=== PATIENT | male | born 1970 | race Two or more races ===

== ENCOUNTER 2025-01-14 08:46 | Inpatient (IN) | payer OTHER ==
[~2025-01-14] VITALS: Ht 167.6 cm; Wt 86.2 kg
[2025-01-14] MEDS ORDERED: NORVASC (09:03)
[2025-01-14] MEDS ORDERED: DIOVAN320 MG (09:03)
[2025-01-14] MEDS ORDERED: NEURONTIN800 MG (09:04)
[2025-01-14] MEDS ORDERED: PANTOPRAZOLE SODIUM 40 MG/VIAL VIAL IV STA (09:37)
[2025-01-14] MEDS ORDERED: 0.9 % SODIUM CHLORIDE 1,000 ML IV STA (09:38)
[2025-01-14] MEDS ORDERED: THIAMINE HCL 100 MG/ML 2 ML VIAL IV STA (09:43)
[2025-01-14] MEDS ORDERED: ONDANSETRON HCL 2 MG/ML VIAL IV STA (09:45)
[2025-01-14 09:58] LABS: BASO % 0.9 % (0.1-1.2); EOS # 0.01 (0.04-0.54); EOS % 0.1 % (0.7-7.0); LYMPH # 1.24 (1.18-3.74); LYMPH % 14.3 % (19.3-53.1); MEAN PLATELET VOLUME 11.00 fl (9.4-12.4); MONO # 0.71 (0.24-0.82); MONO % 8.2 % (4.7-12.5); NEUT # 6.58 (1.56-6.13); NEUT % 76.2 % (34.0-71.1); RED CELL DISTRIBUTION WIDTH 12.9 % (11.6-14.4)
[2025-01-14 10:26] LABS: URINE APPEARANCE Clear; URINE BILIRRUBIN Moderate (NEGATIVE); URINE BLOOD Small; URINE COLOR Orange; URINE GLUCOSE Negative (NEGATIVE); URINE KETONE Negative (NEGATIVE); URINE LEUKOCYTE Small; URINE NITRATE Positive; URINE PROTEIN 30 (NEGATIVE)
[2025-01-14 10:28] LABS: URINE EPITHELIAL CELLS 4.1 uL (0.0-38.8); URINE RBC 92.8 uL (0.0-20.8); URINE WBC 1.9 uL (0.0-23.2)
[2025-01-14 10:37] LABS: ALT/SGPT 43.0 U/L (12-78); AST/SGOT 162.0 U/L (15-37); BILIRUBIN TOTAL 7.48 mg/dL (0.3-1.2); BUN CREA RATIO 20.0 (7.0-25.0); CREATININE SERUM 0.59 mg/dL (0.70-1.30); GFR 142.62; GLOBULINA 5.6 G/DL (2.4-3.5); GLUCOSE FASTING 106.0 mg/dL (65-100); OSMOLALITY SERUM 280.0 MOSM/KG (275-295)
[2025-01-14 10:39] LABS: URINE BACTERIA 3.5 uL (0.0-1933); URINE CAST 0.14 uL (0.0-1.40); URINE UROBILINOGEN 4.0 E.U./dl
[2025-01-14] MEDS ORDERED: DIATRIZOATE MEGLUMINE, SODIUM 30 ML BOTTLE ONE (11:57)
[2025-01-14] MEDS ORDERED: POTASSIUM CHLORIDE/NACL 0.9% 20 MEQ/1,000 ML PIGGYBAG IV STA (12:31)
[2025-01-14] MEDS ORDERED: GABAPENTIN 300 MG CAPSULE PO SCH (14:43)
[2025-01-14] MEDS ORDERED: CEFTRIAXONE SODIUM 1,000 MG VIAL IV SCH (20:09)
[2025-01-14] MEDS ORDERED: OCTREOTIDE ACETATE 0.05MG/ML (50MCG/ML) AMPUL IV ONE (20:15)
[2025-01-14] MEDS ORDERED: PANTOPRAZOLE SODIUM 80 MG in 0.9 % SODIUM CHLORIDE 100 ML IV SCH (20:15)
[2025-01-14] MEDS ORDERED: OCTREOTIDE ACETATE 1,250 MCG in 0.9 % SODIUM CHLORIDE 250 ML IV SCH (20:15)
[2025-01-14] MEDS ORDERED: LABETALOL HCL 100 MG/20 ML ML IV PUSH PRN (20:15)
[2025-01-14] MEDS ORDERED: 0.9 % SODIUM CHLORIDE 1,000 ML IV SCH (20:15)
[2025-01-14] MEDS ORDERED: ACETAMINOPHEN 325 MG TABLET PO PRN (20:30)
[2025-01-14] MEDS ORDERED: ONDANSETRON HCL 4 MG in 0.9 % SODIUM CHLORIDE 50 ML IV PRN (20:30)
[2025-01-14] MEDS ORDERED: MORPHINE SULFATE 2 MG/ML SYRINGE IV PRN (20:30)
[2025-01-14] MEDS ORDERED: POTASSIUM CHLORIDE IN WATER 100 ML IV SCH (21:00)
[2025-01-14 23:35] LABS: ALT/SGPT 39.0 U/L (12-78); AST/SGOT 133.0 U/L (15-37); BILIRUBIN TOTAL 6.46 mg/dL (0.3-1.2); BILIRUBIN,CONJUGATED 3.05 mg/dL (0.0-0.2)
[2025-01-15] VITALS (13 sets, daily range): BP systolic 123–151; BP diastolic 62–85; O2SAT 95–100
[2025-01-15 06:43] LABS: BASO % 0.7 % (0.1-1.2); EOS # 0.04 (0.04-0.54); EOS % 0.4 % (0.7-7.0); LYMPH # 1.85 (1.18-3.74); LYMPH % 19.5 % (19.3-53.1); MEAN PLATELET VOLUME 11.30 fl (9.4-12.4); MONO # 0.90 (0.24-0.82); MONO % 9.5 % (4.7-12.5); NEUT # 6.60 (1.56-6.13); NEUT % 69.6 % (34.0-71.1); RED CELL DISTRIBUTION WIDTH 13.1 % (11.6-14.4)
[2025-01-15 06:58] LABS: ALT/SGPT 35.0 U/L (12-78); AST/SGOT 115.0 U/L (15-37); BILIRUBIN TOTAL 5.42 mg/dL (0.3-1.2); BUN CREA RATIO 30.0 (7.0-25.0); CREATININE SERUM 0.56 mg/dL (0.70-1.30); GFR 151.47; GLOBULINA 4.6 G/DL (2.4-3.5); GLUCOSE FASTING 119.0 mg/dL (65-100); OSMOLALITY SERUM 288.0 MOSM/KG (275-295)
[2025-01-15] MEDS ORDERED: POTASSIUM CHLORIDE 20MEQ/100ML H2O PB IV ONE (08:45)
[2025-01-15] MEDS ORDERED: MAGNESIUM SULFATE IN WATER 4 GM/100 ML PIGGYBACK IV NR (10:30)
[2025-01-15] MEDS ORDERED: POTASSIUM CHLORIDE IN WATER 100 ML IV SCH (13:00)
[2025-01-15] MEDS ORDERED: AMLODIPINE BESYLATE 2.5 MG TABLET PO SCH (17:00)
[2025-01-15] MEDS ORDERED: OCTREOTIDE ACETATE 1,250 MCG in 0.9 % SODIUM CHLORIDE 250 ML IV SCH (21:00)
[2025-01-15] MEDS ORDERED: SODIUM CL 0.9% 250 ML IV.SOLN ONE (22:08)
[2025-01-16 04:21] VITALS: BP 112/51; O2SAT 98
[2025-01-16 06:46] LABS: BASO % 0.9 % (0.1-1.2); EOS # 0.08 (0.04-0.54); EOS % 0.9 % (0.7-7.0); LYMPH # 1.55 (1.18-3.74); LYMPH % 17.0 % (19.3-53.1); MEAN PLATELET VOLUME 10.90 fl (9.4-12.4); MONO # 0.77 (0.24-0.82); MONO % 8.4 % (4.7-12.5); NEUT # 6.62 (1.56-6.13); NEUT % 72.6 % (34.0-71.1); RED CELL DISTRIBUTION WIDTH 13.2 % (11.6-14.4)
[2025-01-16 07:19] LABS: BUN CREA RATIO 27.0 (7.0-25.0); CREATININE SERUM 0.52 mg/dL (0.70-1.30); GFR 164.99; GLUCOSE FASTING 94.0 mg/dL (65-100); OSMOLALITY SERUM 283.0 MOSM/KG (275-295)
[2025-01-16 07:30] VITALS: BP 140/82; O2SAT 94
[2025-01-16] MEDS ORDERED: IRBESARTAN 150 MG TABLET PO SCH (09:00)
[2025-01-16 12:00] VITALS: BP 154/80; O2SAT 97
[2025-01-16] MEDS ORDERED: THIAMINE HCL 100 MG/ML 2 ML VIAL IV SCH (12:00)
[2025-01-16] MEDS ORDERED: DIPHENHYDRAMINE HCL 50 MG/ML VIAL 1ML ONE (14:17)
[2025-01-16] MEDS ORDERED: MIDAZOLAM HCL 2 MG/2 ML VIAL IV PUSH STA (14:41)
[2025-01-16] MEDS ORDERED: DIPHENHYDRAMINE HCL 50 MG/ML VIAL 1ML IV ONE (14:45)
[2025-01-16 15:20] VITALS: BP 133/70; O2SAT 100
[2025-01-16] MEDS ORDERED: POTASSIUM CHLORIDE 20MEQ/100ML H2O PB IV ONE (17:21)
[2025-01-16] MEDS ORDERED: POTASSIUM CHLORIDE IN WATER 100 ML IV SCH (20:00)
[2025-01-16 20:08] VITALS: BP 140/65; O2SAT 100
[2025-01-16 21:28] LABS: INR 1.37
[2025-01-16 23:19] VITALS: BP 133/62; O2SAT 98
[2025-01-17 04:00] VITALS: BP 139/73; O2SAT 100
[2025-01-17 06:29] LABS: BASO % 0.8 % (0.1-1.2); EOS # 0.10 (0.04-0.54); EOS % 1.1 % (0.7-7.0); LYMPH # 1.68 (1.18-3.74); LYMPH % 18.9 % (19.3-53.1); MEAN PLATELET VOLUME 10.90 fl (9.4-12.4); MONO # 0.79 (0.24-0.82); MONO % 8.9 % (4.7-12.5); NEUT # 6.24 (1.56-6.13); NEUT % 70.0 % (34.0-71.1); RED CELL DISTRIBUTION WIDTH 13.3 % (11.6-14.4)
[2025-01-17 06:57] VITALS: BP 143/77; O2SAT 99
[2025-01-17 06:57] LABS: BUN CREA RATIO 16.0 (7.0-25.0); CREATININE SERUM 0.56 mg/dL (0.70-1.30); GFR 151.47; GLUCOSE FASTING 89.0 mg/dL (65-100); OSMOLALITY SERUM 278.0 MOSM/KG (275-295)
[2025-01-17] MEDS ORDERED: PANTOPRAZOLE SODIUM 40 MG/VIAL VIAL IV SCH (09:00)
[2025-01-17 12:00] VITALS: BP 149/77; O2SAT 100
[2025-01-17] MEDS ORDERED: POTASSIUM CHLORIDE IN WATER 100 ML IV SCH (13:00)
[2025-01-17 14:00] VITALS: BP 144/69; O2SAT 96
[2025-01-17 15:03] VITALS: BP 143/77; O2SAT 98
[2025-01-17 16:00] VITALS: BP 137/72; O2SAT 97
[2025-01-17] MEDS ORDERED: CARVEDILOL 3.125 MG TABLET PO SCH (17:00)
[2025-01-17] MEDS ORDERED: MIDAZOLAM HCL 2 MG/2 ML VIAL IV PUSH ONE (17:30)
[2025-01-17] MEDS ORDERED: fentaNYL CITRATE 50 MCG/ML AMPUL IV PUSH ONE (17:30)
[2025-01-18 02:30] VITALS: BP 137/73; O2SAT 96
[2025-01-18 10:37] VITALS: BP 135/77; O2SAT 97
== END 2025-01-18 13:56 | disposition home or self-care (01) | DRG 433 ==
LOC: ER 08:46 → ICU-2 20:50 → ICU 01-15 21:51 → MEDJ 01-17 18:30
PROVIDERS: General Practice; Physician Assistant Medical; Radiology Vascular & Interventional Radiology; ADMIT Internal Medicine; ATTEND Internal Medicine
PROC: BW21YZZ Computerized Tomography (CT Scan) of Abdomen and Pelvis using Other Contrast (ICD-10-PCS; 2025-01-14)
PROC: 4A12X4Z Monitoring of Cardiac Electrical Activity, External Approach (ICD-10-PCS; 2025-01-14)
PROC: 0DJ08ZZ Inspection of Upper Intestinal Tract, Via Natural or Artificial Opening Endoscopic (ICD-10-PCS; 2025-01-16)
PROC: 0FB13ZX Excision of Right Lobe Liver, Percutaneous Approach, Diagnostic (ICD-10-PCS; principal; 2025-01-17)
DX: K70.30 Alcoholic cirrhosis of liver without ascites (principal); I85.10 Secondary esophageal varices without bleeding; K76.6 Portal hypertension; F10.21 Alcohol dependence, in remission; K29.90 Gastroduodenitis, unspecified, without bleeding; K31.89 Other diseases of stomach and duodenum; D53.9 Nutritional anemia, unspecified; D69.6 Thrombocytopenia, unspecified; R59.0 Localized enlarged lymph nodes; I10 Essential (primary) hypertension; I51.7 Cardiomegaly; R19.01 Right upper quadrant abdominal swelling, mass and lump; Y90.9 Presence of alcohol in blood, level not specified